=== PATIENT | male | born 1955 | race Caucasian/White ===

== ENCOUNTER → 2023-03-06 12:45 | Outpatient (REF) | payer MEDICARE, SELFPAY ==
--- NOTE | 2023-03-06 12:54 | CA_ITS ---
Transthoracic Echocardiogram Patient (Last, First, Middle): Marquis Brandt, Gender: Male Date of : 1955 Age: 67 Procedure Date: 03/06/2023 Procedure Type: Transthoracic Echocardiogram Location: [facility] Height: 172.72 cm Weight: 65.77 kg BSA: 1.78 m2 Heart Rate: 82 bpm BP: 152 / 78 mmHg Manager Call Center: [facility] Referring MD: Cammie Nix NP Prescription Clerk Lenses: Navid Arrieta MD Symptoms: BENIGHN HTN I10 Study Quality: Adequate ECG Rhythm: Sinus Conclusions: - 1. Normal LV systolic function with grade 1 diastolic dysfunction with possible basal and mid inferior wall hypokinesis 2. Normal cardiac valvular Doppler 3. Normal RV systolic pressure 4. Mildly dilated ascending aorta at 3.9 cm 5. No gross pericardial effusion Findings Left Ventricle Normal left ventricular size, thickness, and systolic function. The visually estimated ejection fraction is between 60-65%. Spectral Doppler is indicative of an impaired relaxation filling pattern. E/E prime ratio is <8, consistent with normal filling pressures. Evidence suggests grade I (mild) diastolic dysfunction. Possible hypokinesis of the basal inferoseptal and basal and mid inferior wall, more apparent on strain imaging. Peak GLS is 15.6%, which is mildly reduced. Right Ventricle Normal right ventricular cavity size and systolic function. Atria Both atria are normal in size. There is no evidence of interatrial shunt. Aortic Valve Normal aortic valve structure and function. There is no aortic valve stenosis. There is no aortic valve regurgitation. Mitral Valve Normal mitral valve structure and function. There is trace mitral valve regurgitation. There is no mitral valve stenosis. Pulmonic Valve The pulmonic valve is likely normal. Tricuspid Valve Normal tricuspid valve structure. There is trace tricuspid valve regurgitation. The right ventricular systolic pressure is normal. The right ventricular systolic pressure is 25 mmHg. Normal right atrial pressure. There is no evidence of pulmonary hypertension. Great Vessels The pulmonary artery was not well visualized. There is mild dilatation of the ascending aorta measuring 3.90 cm. Venous The inferior vena cava is normal in size and collapses greater than 50% with inspiration. Pericardium/Pleural There is no evidence of pericardial effusion. Prior Study Comparison No prior study available for comparison. Measurements 2D Linear Measurements IVSd: 0.94 0.6-0.9/0.6-1.0 cm LVIDd: 4.09 3.9-5.3/4.2-5.9 cm LVIDd Index: 2.30 2.4-3.2/2.2-3.1 cm/m2 LVIDs: 2.63 2.0-3.6 cm LVPWd: 0.70 0.7-1.1 cm LA Diam: 3.60 2.7-3.8/3.0-4.0 cm LAIDs Index: 2.02 1.5-2.3 cm/m2 LV Mass: 124.81 67-162/88-224 g LV Mass Index: 70.12 43-95/49-115 g/m2 LVOT Diam: 2.30 3.0+(-)1.3 cm 2D Systolic Function EF 4C: 64.80 >55% EF 2C: 60.80 >55% EF BiP: 63.20 >55% Mitral Valve MV Pk E: 0.80 MV PK A: 0.89 MV Decel Time: 264.00 E/A: 0.90 E'Lateral: 8.92 E'Medial: 5.44 E/E' Med: 14.70 E/E' Lat: 8.90 PHT: 77.00 MVA PHT: 2.86 Decel [place]: 3.02 Aortic Valve AoV Pk Nino: 1.26 AoV Pk Grad: 6.00 LVOT LVOT Pk Nino: 1.02 LVOT Mn Nino: 0.69 LVOT VTI: 0.19 LVOT Pk Grad: 4.00 LVOT Mn Grad: 2.00 LVOT Diam: 2.30 LVOT Area: 4.15 Diastolic Function MV Pk E: 0.80 MV Pk A: 0.89 E/A: 0.90 E'Medial: 5.44 E/E' Med: 14.70 E' Laterial: 8.92 E/E' Lat: 8.90 Right Ventricle TAPSE (mm): 16.10 TVS' Nino: 9.70 Tricuspid Valve TR Pk Nino: 2.32 TR Pk Grad: 22.00 RA Press: 3.00 RVSP: 25.00 Great Vessels Aorta Sinus of Valsalva: 3.90 2.0-3.5 cm Ao Asc: 3.90 2.1-3.4 cm Pulmonary Valve PV Pk Nino: 0.96 Peak PV Grad: 4.00 Updated in Other Vendor System with Status of Final Navid Arrieta MD electronically signed on 03/07/2023 6:02:01 PM with status of Final
== END ==
LOC: HO.CARD 12:45
PROVIDERS: PCP Nurse Practitioner Adult Health; Visit Provider Plastic Surgery
DX: I10 Essential (primary) hypertension (principal)
CPT/HCPCS: 93306; 93356